=== PATIENT | male | born 1930 | race Native Hawaiian/Other Pacific Islander ===

== ENCOUNTER 2016-04-24 08:01 | Outpatient (CLI) | payer OTHER ==
[~2016-04-24 08:01] MED LIST: CALCARB/D600 MG PO; CARB25TA29 PO; CELE200C2 PO; CLON0.1T16 PO; ELIQUIS5 MG PO; FORTAMET500 MG PO; FURO20TA67 PO; FURO40TA93 PO; LEVO175T PO; LIPITOR20 MG PO; MAG-OXIDE400 MG PO; MECLIZINE25 MG OR; MULT VITAMI1 PO; POTA20TA4 PO; PREVACID30 MG OR; RANITIDINE 150150 MG PO; SM OMEPRAZOLE20 MG PO; TIROSINT125 MCG OR; TIROSINT88 MCG PO; TRIM800T12 PO
[2016-04-24 08:48] LABS: PLATELET COUNT 159 K/uL (142-355)
[2016-04-24 09:45] LABS: POTASSIUM 4.4 mmol/L (3.6-5.2); SODIUM 140 mmol/L (136-145)
== END 2016-04-24 18:59 | disposition home or self-care (01) ==
LOC: LABW 08:01
PROVIDERS: Internal Medicine
DX: I10 Essential (primary) hypertension (principal)
CPT/HCPCS: 36415; 80053; 80061; 81000; 84439; 84443; 85027

== ENCOUNTER 2016-06-06 16:25 | Emergency (ER) | payer OTHER ==
[~2016-06-06] VITALS: Ht 182.9 cm; Wt 77.1 kg
[2016-06-06 17:30] LABS: PLATELET COUNT 114 K/uL (142-355)
[2016-06-06 17:38] LABS: POTASSIUM 4.1 mmol/L (3.6-5.2); SODIUM 130 mmol/L (136-145)
[2016-06-06 20:10] VITALS: BP 102/53; TEMP 98.1
== END 2016-06-06 20:11 | disposition home or self-care (01) ==
LOC: ED 16:25
PROVIDERS: Emergency Medicine
DX: R53.1 Weakness (principal); E87.1 Hypo-osmolality and hyponatremia
CPT/HCPCS: 36415; 80053; 81000; 85027; 87804; 93005; 99283

== ENCOUNTER 2016-10-21 08:36 | Outpatient (CLI) | payer OTHER ==
[2016-10-21 10:02] LABS: PLATELET COUNT 201 K/uL (142-355)
[2016-10-21 10:21] LABS: POTASSIUM 4.5 mmol/L (3.6-5.2); SODIUM 141 mmol/L (136-145)
== END 2016-10-21 19:30 | disposition home or self-care (01) ==
LOC: LABW 08:36
PROVIDERS: Internal Medicine
DX: I10 Essential (primary) hypertension (principal); E03.8 Other specified hypothyroidism
CPT/HCPCS: 36415; 80053; 80061; 81000; 84439; 84443; 85027

== ENCOUNTER 2017-01-23 10:06 | Outpatient (CLI) | payer OTHER | END 2017-01-23 18:59 | disposition home or self-care (01) | LOC: LABW 10:06 | DX: E03.8 Other specified hypothyroidism (principal) | CPT/HCPCS: 36415; 84439; 84443 ==

== ENCOUNTER 2017-03-07 09:13 | Outpatient (CLI) | payer OTHER | END 2017-03-07 09:40 | disposition short-term general hospital (02) | LOC: AMB 09:13 | DX: M25.551 Pain in right hip (principal); M79.651 Pain in right thigh; M21.851 Other specified acquired deformities of right thigh; W01.0XXA Fall on same level from slipping, tripping and stumbling without subsequent striking against object, initial encounter; Y92.092 Bedroom in other non-institutional residence as the place of occurrence of the external cause | CPT/HCPCS: A0425; A0427 ==

== ENCOUNTER 2017-03-12 10:58 | Inpatient (IN) | payer OTHER ==
[2017-03-13 06:12] LABS: PLATELET COUNT 198 K/uL (142-355)
[2017-03-13 06:54] LABS: POTASSIUM 3.6 mmol/L (3.6-5.2); SODIUM 136 mmol/L (136-145)
== END 2017-03-16 10:57 | disposition still patient (30) ==
LOC: PAVC 10:58
PROVIDERS: ADMIT Internal Medicine
DX: S72.141D Displaced intertrochanteric fracture of right femur, subsequent encounter for closed fracture with routine healing (principal); R48.9 Unspecified symbolic dysfunctions; R26.89 Other abnormalities of gait and mobility
CPT/HCPCS: 80053; 82272; 82607; 82747; 83540; 84443; 85027

== ENCOUNTER 2017-03-16 11:42 | Inpatient (IN) | payer OTHER ==
[2017-03-19 05:57] LABS: PLATELET COUNT 360 K/uL (142-355)
[2017-03-19 06:48] LABS: POTASSIUM 4.3 mmol/L (3.6-5.2); SODIUM 134 mmol/L (136-145)
[2017-04-02 04:22] LABS: PLATELET COUNT 230 K/uL (142-355)
[2017-04-02 04:45] LABS: POTASSIUM 4.2 mmol/L (3.6-5.2)
[2017-04-09 17:10] LABS: PLATELET COUNT 225 K/uL (142-355)
[2017-04-09 17:23] LABS: POTASSIUM 4.2 mmol/L (3.6-5.2)
== END 2017-04-16 11:12 | disposition still patient (30) ==
LOC: PAVC 11:42
PROVIDERS: ADMIT Internal Medicine
DX: S72.141D Displaced intertrochanteric fracture of right femur, subsequent encounter for closed fracture with routine healing (principal); R48.9 Unspecified symbolic dysfunctions; R26.89 Other abnormalities of gait and mobility; D50.9 Iron deficiency anemia, unspecified
CPT/HCPCS: 80053; 85027; 87081

== ENCOUNTER 2017-03-17 04:50 | Outpatient (CLI) | payer OTHER | END 2017-03-17 20:23 | disposition home or self-care (01) | LOC: LAB 04:50 | DX: Z12.12 Encounter for screening for malignant neoplasm of rectum (principal) | CPT/HCPCS: 87081 ==

== ENCOUNTER 2017-04-09 17:20 | Outpatient (CLI) | payer OTHER | END 2017-04-09 18:30 | disposition home or self-care (01) | LOC: CT 17:20 | DX: R41.0 Disorientation, unspecified (principal) ==

== ENCOUNTER 2017-04-16 12:25 | Inpatient (IN) | payer OTHER | END 2017-04-29 13:00 | disposition home or self-care (01) | LOC: PAVC 12:25 | PROVIDERS: ADMIT Internal Medicine | DX: S72.141D Displaced intertrochanteric fracture of right femur, subsequent encounter for closed fracture with routine healing (principal); R48.9 Unspecified symbolic dysfunctions; R26.89 Other abnormalities of gait and mobility; D50.9 Iron deficiency anemia, unspecified | CPT/HCPCS: 81000 ==

== ENCOUNTER 2018-04-05 13:57 | Outpatient (CLI) | payer OTHER ==
[2018-04-06] MEDS ORDERED: GABA300C2 PO (18:05)
[2018-04-06] MEDS ORDERED: SERT50TA PO (18:05)
[2018-04-06] MEDS ORDERED: TRAM50TA PO (18:06)
[2018-04-06] MEDS ORDERED: TAMS0.4C PO (18:06)
[2018-04-06] MEDS ORDERED: ALPR0.2566 PO (18:07)
[2018-04-06] MEDS ORDERED: VITAMIN B-121000 MC2 PO (18:08)
[2018-04-06] MEDS ORDERED: MULTI VITAMIN1 TAB PO (18:08)
[2018-04-06] MEDS ORDERED: VITAMIN C PO (18:09)
[2018-04-06] MEDS ORDERED: LIPITOR40 MG PO (18:10)
== END 2018-04-05 22:13 | disposition home or self-care (01) ==
LOC: LAB 13:57
DX: R30.0 Dysuria (principal)
CPT/HCPCS: 81000

== ENCOUNTER 2018-04-06 15:14 | Inpatient (IN) | payer OTHER ==
[~2018-04-06] VITALS: Ht 182.9 cm; Wt 65.4 kg
[2018-04-06] VITALS (21 sets, daily range): BP systolic 73–121; BP diastolic 37–62; TEMP 98–98.1
[2018-04-06 15:51] LABS: PLATELET COUNT 239 K/uL (142-355)
[2018-04-06 15:59] LABS: POTASSIUM 4.1 mmol/L (3.6-5.2)
[2018-04-06] MEDS ORDERED: SERT50TA PO (18:05)
[2018-04-06] MEDS ORDERED: GABA300C2 PO (18:05)
[2018-04-06] MEDS ORDERED: TAMS0.4C PO (18:06)
[2018-04-06] MEDS ORDERED: TRAM50TA PO (18:06)
[2018-04-06] MEDS ORDERED: ALPR0.2566 PO (18:07)
[2018-04-06] MEDS ORDERED: MULTI VITAMIN1 TAB PO (18:08)
[2018-04-06] MEDS ORDERED: VITAMIN B-121000 MC2 PO (18:08)
[2018-04-06] MEDS ORDERED: VITAMIN C PO (18:09)
[2018-04-06] MEDS ORDERED: LIPITOR40 MG PO (18:10)
[2018-04-07] VITALS (56 sets, daily range): BP systolic 76–129; BP diastolic 44–449; TEMP 97.1–97.3
[2018-04-07 05:22] LABS: PLATELET COUNT 196 K/uL (142-355)
[2018-04-07 05:50] LABS: POTASSIUM 3.6 mmol/L (3.6-5.2)
[2018-04-08] VITALS (85 sets, daily range): BP systolic 44–141; BP diastolic 25–85; TEMP 96.4–98.8
[2018-04-08 06:13] LABS: PLATELET COUNT 239 K/uL (142-355)
[2018-04-08 06:31] LABS: POTASSIUM 4.2 mmol/L (3.6-5.2)
== END 2018-04-09 00:30 | disposition expired | DRG 177 ==
LOC: ED 15:14 → ICU 18:21
PROVIDERS: Family Medicine; ADMIT Internal Medicine
PROC: 02HV33Z Insertion of Infusion Device into Superior Vena Cava, Percutaneous Approach (ICD-10-PCS; principal; 2018-04-07)
DX: J69.0 Pneumonitis due to inhalation of food and vomit (principal); J96.00 Acute respiratory failure, unspecified whether with hypoxia or hypercapnia; J44.0 Chronic obstructive pulmonary disease with (acute) lower respiratory infection; J44.1 Chronic obstructive pulmonary disease with (acute) exacerbation; I25.811 Atherosclerosis of native coronary artery of transplanted heart without angina pectoris; E88.09 Other disorders of plasma-protein metabolism, not elsewhere classified; D72.823 Leukemoid reaction; E86.0 Dehydration; I95.89 Other hypotension; E03.8 Other specified hypothyroidism; N40.0 Benign prostatic hyperplasia without lower urinary tract symptoms; K21.9 Gastro-esophageal reflux disease without esophagitis
CPT/HCPCS: 36415; 36600; 80053; 82550; 82805; 83880; 84484; 85027; 87040; 87070; 87205; 87899; 93005; 94640; 94664; 94760; 96365; 96375; 99285; C1768; J0132; J0330; J0456; J0696; J1265; J1650; J1940; J2060; J2270; J2543; J2920; J2930; J3370; J3490